=== PATIENT | female | born 1980 | race Caucasian/White ===

== ENCOUNTER → 2016-09-27 | Outpatient (REF) | payer BC, OTHER | LOC: M SFHCADAM 09:03 | PROVIDERS: ATTEND Physician Assistant Medical | DX: R19.7 Diarrhea, unspecified (principal) ==

== ENCOUNTER → 2017-02-07 | Outpatient (CLI) | payer OTHER ==
[~2017-02-07] VITALS: Ht 160 cm; Wt 59.0 kg
[~2017-02-07] MED LIST: EPIP0.3I2 IJ; LIDOCAINE 2% INJ 100 MG/5 ML SDV (FOR ANES.) As Ordered ONE; NS 1,000 ML IV ONE; PROPOFOL 200 MG/20 ML VIAL As Ordered ONE; diphenhydrAMINE INJ 50MG/ML VIAL (J1200) As Ordered ONE
--- NOTE | 2017-02-07 09:40 | ROOR ---
Patient Name: Kinza Burciaga Procedure Date: 02/07/2017 9:01 AM Date of : 1980 Age: 36 Room: [facility] Gender: Female Note Status: Finalized Procedure: Total Colonoscopy to Cecum + Bx. To r/o Microscopic Colitis Indications: Clinically significant diarrhea of unexplained origin, Lower abdominal pain, Change in bowel habits Providers: Peter George MD Referring MD: RENY Jackson Requesting Provider: Medicines: Monitored Anesthesia Care Complications: No immediate complications. Procedure: Pre-Anesthesia Assessment: - The heart rate, respiratory rate, oxygen saturations, blood pressure, adequacy of pulmonary ventilation, and response to care were monitored throughout the procedure. The Colonoscope was introduced through the anus and advanced to the cecum, identified by appendiceal orifice and ileocecal valve. The colonoscopy was performed without difficulty. The patient tolerated the procedure well. The quality of the bowel preparation was fair. Findings: The perianal and digital rectal examinations were normal. Non-bleeding internal hemorrhoids were found during retroflexion. The hemorrhoids were small and Grade I (internal hemorrhoids that do not prolapse). No other significant abnormalities were identified in a careful examination of the remainder of the colon. The exam was otherwise without abnormality. Biopsies for histology were taken with a cold forceps from the cecum, ascending colon, transverse colon and descending colon for evaluation of microscopic colitis. The exam was otherwise without abnormality. Impression: - Preparation of the colon was fair. - Non-bleeding internal hemorrhoids. - The examination was otherwise normal. - The examination was otherwise normal. - Biopsies were taken with a cold forceps from the cecum, ascending colon, transverse colon and descending colon for evaluation of microscopic colitis. - The exam was otherwise normal to the cecum. Recommendation: - Patient has a contact number available for emergencies. The signs and symptoms of potential delayed complications were discussed with the patient. Return to normal activities tomorrow. Written discharge instructions were provided to the patient. - High fiber diet. - Discharge patient to home. - Continue present medications. - Await pathology results. - Telephone GI clinic for pathology results in 1 week. - Check Portal Online for Path Results.([email or web address] - Perform an upper GI series and small bowel follow through. - The findings and recommendations were discussed with the patient's family. Peter George MD Peter George MD 02/07/2017 9:40:04 AM This report has been signed electronically. Number of Addenda: 0 Note Initiated On: 02/07/2017 9:01 AM Estimated Blood Loss: Estimated blood loss: none.
[2017-02-07 10:06] VITALS: BP 117/69
== END ==
LOC: M OPP 08:02
PROVIDERS: ATTEND Internal Medicine Gastroenterology
DX: R19.7 Diarrhea, unspecified (principal); R10.30 Lower abdominal pain, unspecified; R19.4 Change in bowel habit; K64.0 First degree hemorrhoids; I73.00 Raynaud's syndrome without gangrene; D83.9 Common variable immunodeficiency, unspecified; Z79.899 Other long term (current) drug therapy; Z88.0 Allergy status to penicillin; Z88.1 Allergy status to other antibiotic agents; Z88.2 Allergy status to sulfonamides; Z91.010 Allergy to peanuts; Z87.891 Personal history of nicotine dependence

== ENCOUNTER → 2017-05-17 | Outpatient (REF) | payer OTHER ==
[~2017-05-17] MED LIST changes: -LIDOCAINE 2% INJ 100 MG/5 ML SDV (FOR ANES.) As Ordered ONE; -NS 1,000 ML IV ONE; -PROPOFOL 200 MG/20 ML VIAL As Ordered ONE; -diphenhydrAMINE INJ 50MG/ML VIAL (J1200) As Ordered ONE
[2017-05-17 13:40] LABS: BASO % 0.4 % (0.0-1.0); EOS # 0.1 10^3/uL (0.0-0.50); EOS % 0.8 % (0.0-3.0); IMMATURE GRANULOCYTE % 0.4 % (0-0); LYMPH # 1.1 10^3/uL (1.5-4.5); LYMPH % 13.4 % (24.0-44.0); MEAN CORPUSCULAR HEMOGLOBIN 33.3 pg (27.0-33.0); MEAN CORPUSCULAR HGB CONC 34.1 g/dl (32.0-36.5); MEAN CORPUSCULAR VOLUME 97.7 fl (80.0-96.0); MONO # 0.6 10^3/uL (0.0-0.8); MONO % 7.7 % (0.0-5.0); NEUTROPHILS # 6.1 10^3/uL (1.8-7.7); NEUTROPHILS % 77.3 % (36.0-66.0); PLATELET COUNT, AUTOMATED 274 10^3/uL (150-450); RED CELL DISTRIBUTION WIDTH 13.9 % (11.5-14.5); WHITE BLOOD COUNT 7.9 10^3/uL (4.0-10.0)
[2017-05-17 13:59] LABS: ALBUMIN 4.6 GM/DL (3.2-5.2); ALBUMIN/GLOBULIN RATIO 2.09 (1.00-1.93); ALKALINE PHOSPHATASE 83 U/L (45-117); ALT/SGPT 22 U/L (12-78); ANION GAP 8 MEQ/L (8-16); AST/SGOT 23 U/L (15-37); BILIRUBIN,TOTAL 0.5 MG/DL (0.2-1.0); BLOOD UREA NITROGEN 17 MG/DL (7-18); CALCIUM LEVEL 9.2 MG/DL (8.5-10.1); CARBON DIOXIDE LEVEL 27 MEQ/L (21-32); CHLORIDE LEVEL 102 MEQ/L (98-107); CREATININE FOR GFR 0.85 MG/DL (0.55-1.02); GLOMERULAR FILTRATION RATE > 60.0 (>60); GLUCOSE, FASTING 84 MG/DL (70-105); IMMUNOGLOBULIN G 538 MG/DL (681-1648); IMMUNOGLOBULIN M 73.9 MG/DL (40-230); POTASSIUM SERUM 4.1 MEQ/L (3.5-5.1); SODIUM LEVEL 137 MEQ/L (136-145); TOTAL PROTEIN 6.8 GM/DL (6.4-8.2)
[2017-05-17 14:30] LABS: IMMUNOGLOBULIN E < 3.6 IU/ML (<100)
[2017-05-20 14:20] LABS: IgG SERUM (part of Subclasses) 493 mg/dL (700-1600); IgG Subclass 1 300 mg/dL (248-810); IgG Subclass 2 120 mg/dL (130-555); IgG Subclass 3 35 mg/dL (15-102); IgG Subclass 4 1 mg/dL (2-96)
== END ==
LOC: M SFHCPLAZ 10:31
PROVIDERS: ATTEND Internal Medicine Infectious Disease
DX: R19.7 Diarrhea, unspecified (principal); D83.9 Common variable immunodeficiency, unspecified

== ENCOUNTER → 2017-07-12 | Outpatient (CLI) | payer OTHER ==
--- NOTE | 2017-07-12 17:36 | REP ---
RIGHT WRIST, FOUR VIEWS: There is no evidence of an acute fracture, dislocation or intrinsic bone disease. IMPRESSION: No fracture or dislocation. Signed by Helder Swift MD 07/13/2017 04:55 P
== END ==
LOC: M ADAMS 16:23
PROVIDERS: ATTEND Physician Assistant
DX: S60.211A Contusion of right wrist, initial encounter (principal); X58.XXXA Exposure to other specified factors, initial encounter; Y92.89 Other specified places as the place of occurrence of the external cause; Y93.89 Activity, other specified; Y99.8 Other external cause status

== ENCOUNTER → 2017-08-28 | Outpatient (REF) | payer OTHER | LOC: M LAB REF 15:05 | DX: J02.9 Acute pharyngitis, unspecified (principal) ==

== ENCOUNTER → 2017-10-16 | Outpatient (REF) | payer OTHER ==
[2017-10-16 12:19] LABS: BASO # 0.1 10^3/uL (0.0-0.2); BASO % 0.6 % (0.0-1.0); EOS # 0.1 10^3/uL (0.0-0.50); HEMOGLOBIN 15.1 g/dl (12.0-16.0); IMMATURE GRANULOCYTE % 0.3 % (0-3.0); LYMPH # 1.2 10^3/uL (1.5-4.5); LYMPH % 14.5 % (24.0-44.0); MEAN CORPUSCULAR HEMOGLOBIN 34.6 pg (27.0-33.0); MEAN CORPUSCULAR HGB CONC 34.3 g/dl (32.0-36.5); MEAN CORPUSCULAR VOLUME 100.7 fl (80.0-96.0); MONO # 0.4 10^3/uL (0.0-0.8); MONO % 5.4 % (0.0-5.0); NEUTROPHILS # 6.2 10^3/uL (1.8-7.7); NEUTROPHILS % 78.2 % (36.0-66.0); PLATELET COUNT, AUTOMATED 274 10^3/uL (150-450); RED BLOOD COUNT 4.37 10^6/uL (4.00-5.40); RED CELL DISTRIBUTION WIDTH 12.4 % (11.5-14.5); WHITE BLOOD COUNT 7.9 10^3/uL (4.0-10.0)
[2017-10-16 12:53] LABS: IMMUNOGLOBULIN G 465 MG/DL (681-1648)
[2017-10-16 14:04] LABS: IMMUNOGLOBULIN E < 3.6 IU/ML (<100)
== END ==
LOC: M SFHCPLAZ 08:41
DX: D83.9 Common variable immunodeficiency, unspecified (principal)

== ENCOUNTER → 2018-10-24 | Outpatient (REF) | payer OTHER ==
[2018-10-24 19:38] LABS: BASO % 0.5 % (0.0-1.0); EOS # 0.2 10^3/uL (0.0-0.50); HEMATOCRIT 41.8 % (36.0-47.0); HEMOGLOBIN 14.2 g/dl (12.0-15.5); LYMPH # 1.6 10^3/uL (1.5-4.5); LYMPH % 21.8 % (24.0-44.0); MEAN CORPUSCULAR HEMOGLOBIN 33.4 pg (27.0-33.0); MEAN CORPUSCULAR VOLUME 98.4 fl (80.0-96.0); MONO # 0.6 10^3/uL (0.0-0.8); MONO % 8.7 % (0.0-5.0); NEUTROPHILS # 4.9 10^3/uL (1.8-7.7); NEUTROPHILS % 66.7 % (36.0-66.0); PLATELET COUNT, AUTOMATED 288 10^3/uL (150-450); RED BLOOD COUNT 4.25 10^6/uL (4.00-5.40); WHITE BLOOD COUNT 7.3 10^3/uL (4.0-10.0)
[2018-10-24 19:48] LABS: FOLATE 12.7 NG/ML
[2018-10-29 14:53] LABS: IgG SERUM (part of Subclasses) 574 mg/dL (700-1600); IgG Subclass 1 353 mg/dL (248-810); IgG Subclass 2 134 mg/dL (130-555); IgG Subclass 3 48 mg/dL (15-102); IgG Subclass 4 3 mg/dL (2-96)
== END ==
LOC: M SFHCPLAZ 15:12 → M SFHCADAM 15:18
PROVIDERS: ATTEND Internal Medicine Infectious Disease
DX: D83.9 Common variable immunodeficiency, unspecified (principal); D75.89 Other specified diseases of blood and blood-forming organs

== ENCOUNTER → 2019-03-11 | Outpatient (REF) | payer OTHER | LOC: M LAB REF 16:15 | PROVIDERS: ATTEND Physician Assistant Medical | DX: N39.0 Urinary tract infection, site not specified (principal) ==

== ENCOUNTER → 2019-05-29 | Outpatient (REF) | payer OTHER ==
[2019-05-29 12:50] LABS: BASO # 0.1 10^3/uL (0.0-0.2); BASO % 0.6 % (0.0-1.0); EOS # 0.1 10^3/uL (0.0-0.5); EOS % 1.7 % (0.0-3.0); HEMATOCRIT 40.5 % (36.0-47.0); HEMOGLOBIN 13.8 g/dl (12.0-15.5); LYMPH % 11.9 % (24.0-44.0); MEAN CORPUSCULAR HEMOGLOBIN 34.2 pg (27.0-33.0); MEAN CORPUSCULAR HGB CONC 34.1 g/dl (32.0-36.5); MEAN CORPUSCULAR VOLUME 100.2 fl (80.0-96.0); MONO # 0.6 10^3/uL (0.0-0.8); MONO % 6.5 % (0.0-5.0); NEUTROPHILS # 6.7 10^3/uL (1.5-8.5); NEUTROPHILS % 79.1 % (36.0-66.0); PLATELET COUNT, AUTOMATED 255 10^3/uL (150-450); RED BLOOD COUNT 4.04 10^6/uL (4.00-5.40); WHITE BLOOD COUNT 8.5 10^3/uL (4.0-10.0)
[2019-05-29 13:31] LABS: FREE T4 0.8 NG/DL (0.76-1.46); THYROID STIMULATING HORMONE 0.867 uIU/ML (0.358-3.740)
== END ==
LOC: M LABDRWAD 12:29
PROVIDERS: ATTEND Nurse Practitioner Women's Health
DX: N92.1 Excessive and frequent menstruation with irregular cycle (principal)

== ENCOUNTER → 2021-07-26 | Outpatient (REF) ==
[2021-07-26 11:25] LABS: RSV AMPLIFICATION NEGATIVE (NEGATIVE)
== END ==
LOC: M EMP 08:15
PROVIDERS: ATTEND Family Medicine
DX: Z11.52 Encounter for screening for COVID-19 (principal)

== ENCOUNTER → 2021-11-01 | Outpatient (REF) ==
[2021-11-01 15:27] LABS: RSV AMPLIFICATION NEGATIVE (NEGATIVE)
== END ==
LOC: M EMP 10:16
PROVIDERS: ATTEND Family Medicine
DX: Z11.52 Encounter for screening for COVID-19 (principal)

== ENCOUNTER → 2023-06-04 | Outpatient (REF) | LOC: M EMP 07:36 | PROVIDERS: ATTEND Family Medicine | DX: Z11.52 Encounter for screening for COVID-19 (principal) ==

== ENCOUNTER → 2024-08-20 | Outpatient (REF) | LOC: M EMP 09:32 | PROVIDERS: ATTEND Family Medicine | DX: Z11.52 Encounter for screening for COVID-19 (principal) ==